=== PATIENT | male | born 1965 | race African-American/Black ===

== ENCOUNTER 2018-07-24 00:31 | Emergency (ER) | payer MEDICAID ==
[~2018-07-24] VITALS: Ht 177.8 cm; Wt 95.3 kg
[2018-07-24 00:35] VITALS: BP_SYST 133
[2018-07-24 00:55] VITALS: BP_SYST 130
== END 2018-07-24 00:55 ==
LOC: SED 00:31
DX: Z04.1 Encounter for examination and observation following transport accident (principal); I10 Essential (primary) hypertension; V89.2XXA Person injured in unspecified motor-vehicle accident, traffic, initial encounter; Y93.89 Activity, other specified; Y92.410 Unspecified street and highway as the place of occurrence of the external cause; Y99.8 Other external cause status
CPT/HCPCS: 99283